=== PATIENT | male | born 1950 | race Hispanic/Latino ===

== ENCOUNTER 2019-10-26 06:09 | Inpatient (IN) | payer BC, MEDICARE ==
[2019-10-26 06:36] LABS: #Eosinphils 0.1 thou/uL (0.0-0.7); #Lymphocytes 2.4 thou/uL (1.20-3.40); #Monocytes 0.9 thou/uL (0.11-0.59); #Neutrophils 4.6 thou/uL (1.40-6.50); %Eosinophils 0.9 % (0.0-10.0); %Lymphocytes 29.8 % (21.0-51.0); %Monocytes 11.1 % (0.0-10.0); %Neutrophils 58.2 % (42.0-75.0); Hemoglobin 13.7 g/dL (14.0-18.0); Mean Corpuscular Hemoglobin 29.7 pg (27.0-31.0); Mean Corpuscular Volume 87.3 fL (78.0-98.0); Mean Platelet Volume 8.6 fL (7.4-10.4); Platelet Count 190 thou/uL (130-400); RBC Distribution Width 12.7 % (11.5-14.5); Red Blood Cell (RBC) Count 4.62 mill/uL (4.70-6.10)
[2019-10-26 06:44] LABS: Bilirubin Negative (Negative); Blood, Urine Negative (Negative); Clarity Clear (Clear); Glucose, Urine (Dipstick) Normal (Negative); Leukocyte Negative Leu/uL (Negative); Nitrite Negative (Negative); Protein, Urine (Dipstick) 20 mg/dL (Neg-Trace); Urobilinogen Normal mg/dL (Less than 2)
[2019-10-26 07:07] LABS: Anion Gap 12 mmol/L (10-20); BUN (Urea Nitrogen) 24 mg/dL (8.4-25.7); Calc. Creatinine Clearance 0 mL/min (70-130); Carbon Dioxide 22 mmol/L (23-31); Chloride 104 mmol/L (98-107); Estimated GFR-MDRD 74; Potassium 4.2 mmol/L (3.5-5.1); Sodium 134 mmol/L (136-145)
[2019-10-26 07:08] LABS: ALT (SGPT) 17 U/L (8-55); AST (SGOT) 16 U/L (5-34); Alkaline Phosphatase 158 U/L (40-110); Bilirubin, Total 0.3 mg/dL (0.2-1.2); Globulin 3.8 g/dL (2.4-3.5); Glucose 194 mg/dL (80-115); Lipase 25 U/L (8-78); Protein, Total 7.8 g/dL (5.8-8.1)
[2019-10-26] MEDS ORDERED: Morphine 4 MG/ML VIAL ONE ×2 (07:38→11:48)
[2019-10-26] MEDS ORDERED: Ondansetron PF 4 MG/2 ML Vial ONE (07:38)
--- NOTE | 2019-10-26 07:55 | CT ---
EXAM: CT ABDOMEN AND PELVIS HISTORY: Abdominal pain, starting Wednesday. Green foul-smelling diarrhea. COMPARISON: 03/14/2010 Procedure: Multiple contiguous axial images were obtained and a CT of the abdomen and pelvis with IV contrast. C oronal reformats were performed. FINDINGS: Lower Chest: Scarring and atelectasis in the lung bases. Vessels: Normal caliber aorta. No periaortic fat stranding Heart: Normal heart size. No significant pericardial fluid Abdomen: Portal vein:Patent Gallbladder: Surgically absent Liver: Hepatic steatosis. No enhancing masses. Pancreas: within normal limits. Spleen: within normal limits. Adrenals: within normal limits. Kidneys: Symmetric enhancement. No obstructive uropathy. Peritoneum: There is a small amount of perihepatic fluid. No mesenteric mass, lymphadenopathy or free air. Bowel: Limited evaluation due to the lack of oral contrast. Multiple fluid-filled prominent small bow el loops are noted. The exact transition segment appears to be in the right hemiabdomen. The distal small bowel loops as well as the ileocecal junction are decompressed. Appendix is not appreciated. No secondary signs of appendicitis scattered fecal material in a nondistended, nondilated colon. Small amount of fluid adjacent to the cecal apex Mesentery and Retroperitoneum: No enlarged mesenteric or retroperitoneal lymph nodes. Abdominal Wall: within normal limits. Pelvis: Reproductive Organs: Mild enlarged prostate gland. Pelvis: No mass, lymphadenopathy, free air. Small amount of free fluid.. Bladder: within normal limits. Bones: within normal limits. IMPRESSION: 1. Prominent small bowel loops suggesting early or partial bowel obstruction. Continued surveillance to ensure resolution
[2019-10-26] MEDS ORDERED: Lidocaine Viscous Sol 2% 15 ml UD Cup ONE (08:12)
[2019-10-26] MEDS ORDERED: Benzocaine 20% Spray 60 ML CAN ONE (08:12)
--- NOTE | 2019-10-26 09:27 | PDOC.FPRHP ---
- History of Present Illness Chief Complaint: Abdominal Pain History of Present Illness: 69 yo M presents to the ED with complaint of abdominal pain and diarrhea. States abdominal pain started 2 days ago but got acutely worse about 24 hrs ago. Notes he has had diarrhea since Wednesday and occurred again this morning. Denies any blood in his stool. has hx of ex lap, appy, and darlene previous. Denies hx of SBO but states that he was admitted for constipation several years ago and was told by Dr. Ospina at that time that if it happens again he may need surgery - which is questionable whether he had a SBO at that time. Denies any fever, chills, N/V. ED Course: CT abdomen showing partial SBO, NG placed, 1L NS, zofran - Allergies/Adverse Reactions Allergies Allergy/AdvReac Type Severity Reaction Status Date / Time Penicillins Allergy Verified 10/26/19 13:24 - Home Medications Medication Instructions Recorded Confirmed Type No Known 10/26/19 10/26/19 History Comments: No home medications - History PMHx: DM? PSHx: Ex lap, cholecystectomy, appendectomy, knee replacement, ankle, shoulder FHx: Non-contributory Social: Occasional alcohol use, denies tobacco or drugs - Review of Systems General: reports: weight/appetite/sleep changes (decreased appetite). denies: fever/chills Eyes: denies: vision changes, other Respiratory: denies: cough, congestion, shortness of breath Cardiovascular: denies: chest pain, palpitation, edema Gastrointestinal: reports: diarrhea, abdominal pain. denies: nausea, vomiting Genitourinary: denies: incontinence, dysuria Skin: denies: rashes, lesions Musculoskeletal: denies: pain, tenderness Neurological: denies: numbness, weakness - Vital signs BP: 114/70, Pulse: 52, Resp: 16, Temp: 97.8 (Oral), Pain: 8, O2 sat: 95 on ( Room Air), Wt: 79kg - Physical Exam Constitutional: NAD, awake, alert and oriented, well developed HEENT: EOMI, MMM -HEENT: NG tube in place draining bilious contents Heart: RRR, normal S1/S2, no murmurs/rubs/gallops Lungs: CTAB, no respiratory distress Abdomen: soft -Abdomen: Distended with tympany to percussion, mild-mod tenderness to epigastrium, no rigidity or peritoneal signs Musculoskeletal: ROM grossly normal Neurological: no focal deficit, CN II-XII intact Skin: no rash/lesions, capillary refill <2 seconds, no jaundice Heme/Lymphatic: no unusual bruising or bleeding, no purpura Psychiatric: normal mood and affect, good judgment and insight, intact recent and remote memory FMR H&P: Results - Labs Result Diagrams: 10/26/19 06:23 10/26/19 06:23 Lab results: WBC 8.0 thou/uL (4.8-10.8) 10/26/19 06:23 Hgb 13.7 g/dL (14.0-18.0) L 10/26/19 06:23 Hct 40.4 % (42.0-52.0) L 10/26/19 06:23 MCV 87.3 fL (78.0-98.0) 10/26/19 06:23 Plt Count 190 thou/uL (130-400) 10/26/19 06:23 Neutrophils % 58.2 % (42.0-75.0) 10/26/19 06:23 Sodium 134 mmol/L (136-145) L 10/26/19 06:23 Potassium 4.2 mmol/L (3.5-5.1) 10/26/19 06:23 Chloride 104 mmol/L (98-107) 10/26/19 06:23 Carbon Dioxide 22 mmol/L (23-31) L 10/26/19 06:23 BUN 24 mg/dL (8.4-25.7) 10/26/19 06:23 Creatinine 1.00 mg/dL (0.7-1.3) 10/26/19 06:23 Glucose 194 mg/dL (80-115) H 10/26/19 06:23 Calcium 9.0 mg/dL (7.8-10.44) 10/26/19 06:23 Total Bilirubin 0.3 mg/dL (0.2-1.2) 10/26/19 06:23 AST 16 U/L (5-34) 10/26/19 06:23 ALT 17 U/L (8-55) 10/26/19 06:23 Alkaline Phosphatase 158 U/L (40-110) H 06/18/20 06:23 Serum Total Protein 7.8 g/dL (5.8-8.1) 10/26/19 06:23 Albumin 4.0 g/dL (3.4-4.8) 10/26/19 06:23 Lipase 25 U/L (8-78) 10/26/19 06:23 Urine Ketones Negative mg/dL (Negative) 10/26/19 06:35 Urine Blood Negative (Negative) 10/26/19 06:35 Urine Nitrite Negative (Negative) 10/26/19 06:35 Ur Leukocyte Esterase Negative Maddie/uL (Negative) 10/26/19 06:35 - Radiology Interpretation CT scan - pelvis Status: report reviewed by me (1. Prominent small bowel loops suggesting early or partial bowel obstruction. Continued surveillance to ensure resolution) FMR H&P: A/P - Problem List (1) Partial small bowel obstruction Current Visit: Yes Status: Acute Code(s): K56.600 - PARTIAL INTESTINAL OBSTRUCTION, UNSPECIFIED TO CAUSE (2) History of exploratory laparotomy Current Visit: Yes Status: Acute Code(s): Z98.890 - OTHER SPECIFIED POSTPROCEDURAL STATES - Plan Partial Small Bowel Obstruction - Abdominal pain, diarrhea, hx of multiple abdominal surgeries - CT w/o contrast read as early vs partial SBO - NG tube placed in ED - Aggressive fluid resuscitation w/ LR @ 200 - Walking program to stimulate bowels - Gen surg consulted from ED, appreciate recs Elevated blood glucose - No previous Dx of DM - A1c ordered VTE: SCD Diet: Regular Code: Full Dispo: Admit to medical inpt. ELOS > 48hr PCP: Dr. Vega, [facility] FMR H&P: Upper Level - Pertinent history 69 year old male with extensive abdominal surgical history presents with diarrhea and abdominal pain since Wednesday. Patient states that he has been having 3-4 bouts of watery diarrhea per day. He states that this morning his BM was a little more formed. He states his abdomen is tender throughout. He denies N/V. He denies having constipation. He states he was having normal BM's prior to Wednesday. He denies any blood in his stool. Patient states that he has history of partial SBO in the past that presented similarly. He denies fever, cough, congestion, shortness of breath. - Pertinent findings General: Alert and oriented x3. NAD. HEENT: MMM. Card: RRR, no murmurs. Resp: CTA bilaterally, no acute respiratory distress. Abdomen: Soft, mildly tender to palpation throughout, no palpable masses, hypoactive, high pitched bowel sounds. NG tube with minimal bilious output Ext: No cyanosis or edema - Plan Date/Time: 10/26/19926 I, Gisela Morris, have evaluated this patient and agree with findings/plan as outlined by purchasing internship resident. Pertinent changes/additions are listed here. Suspect partial small bowel obstruction - NPO; bowel rest - NG tube; now with minimal output - General surgery consulted; appreciate recs - Evaluate for NG tube removal - Encourage ambulation - IVF Diabetes, newly diagnosed - HgA1c 7.7 - Not currently on medications - SSI once diet tolerated - Recommend starting on metformin when tolerating PO DVT ppx: SCD's, ambulation Code Status: Full code Dispo: Admit to medical. Anticipate LOS >48 hours. Addendum - Attending - Attending Attestation Date/Time: 10/26/191812 I personally evaluated the patient and discussed the management with Dr. Araya. I agree with the History, Examination, Assessment and Plan documented above with any addition or exceptions noted below - 69 yo M presents to the ED with complaint of abdominal pain and diarrhea. States abdominal pain started 2 days ago but got acutely worse about 24 hrs ago. Notes he has had diarrhea since Wednesday and occurred again this morning. Denies any blood in his stool. has hx of ex lap, appy, and darlene previous. Denies hx of SBO but states that he was admitted for constipation several years ago. PMH/PSH/Meds/SH reviewed and agree with resident's documentation. Afebrile VSS. Exam repeated by me and agree with resident's findings. Labs: WBC=8.0, H/H= 13.7/40.4, Jgq=644, Ax=568, K=4.2, Cl= 104, CO2=22, BUN/Cr= 24/1.0, Xsua=182, AST/ALT=16/17, CihA2t=2.7, CT abd- prominent loops of bowel proximally primarily on right side; possible early versus partial SBO. A/P: 1) Partial verus early SBO - ADmit to medical; NGT in place and patient feels better. Surgery consulted earlier. 2) Newly diagnosed DM - monitor accuchecks; diabetic education and dietary consult tomorrow.
[2019-10-26] MEDS ORDERED: Ondansetron ODT 4 MG TAB PO PRN (13:02)
[2019-10-26] MEDS ORDERED: Ondansetron PF 4 MG/2 ML Vial IVP PRN (13:02)
[2019-10-26] MEDS ORDERED: Morphine 2 MG/ML SYRINGE SLOW IVP PRN (13:02)
[2019-10-26] MEDS ORDERED: Acetaminophen 325 MG TAB PO PRN (13:02)
[2019-10-26 13:31] LABS: Hemoglobin A1c 7.7 % (4.0-6.0)
[2019-10-26 13:33] VITALS: BMI 28.2
[2019-10-26] MEDS: Lactated Ringer's 1,000 ML IV SCH ×3 (14:22→19:59)
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
[2019-10-26] MEDS ORDERED: Polyethylene Glycol 3350 17 GM Packet PER TUBE SCH (16:30)
[2019-10-26] MEDS: Famotidine/PF 20 mg/2ml Vial SLOW IVP SCH (20:00)
[2019-10-27] MEDS: Lactated Ringer's 1,000 ML IV SCH ×3 (00:13→10:23)
[2019-10-27 06:29] LABS: #Eosinphils 0.1 thou/uL (0.0-0.7); #Lymphocytes 2.1 thou/uL (1.20-3.40); #Monocytes 0.7 thou/uL (0.11-0.59); %Basophils 0.4 % (0.0-1.0); %Eosinophils 1.3 % (0.0-10.0); %Lymphocytes 35.6 % (21.0-51.0); %Monocytes 11.3 % (0.0-10.0); %Neutrophils 51.3 % (42.0-75.0); Hemoglobin 12.6 g/dL (14.0-18.0); Mean Corpuscular HGB CONC 35.6 g/dL (32.0-36.0); Mean Corpuscular Hemoglobin 31.4 pg (27.0-31.0); Mean Corpuscular Volume 88.2 fL (78.0-98.0); Mean Platelet Volume 8.1 fL (7.4-10.4); Platelet Count 164 thou/uL (130-400); RBC Distribution Width 12.6 % (11.5-14.5); Red Blood Cell (RBC) Count 4.01 mill/uL (4.70-6.10); White Blood Cell (WBC) Count 5.9 thou/uL (4.8-10.8)
[2019-10-27 06:47] LABS: Phosphorus 2.7 mg/dL (2.3-4.7)
[2019-10-27 07:17] LABS: ALT (SGPT) 15 U/L (8-55); AST (SGOT) 14 U/L (5-34); Albumin 3.3 g/dL (3.4-4.8); Alkaline Phosphatase 112 U/L (40-110); Anion Gap 9 mmol/L (10-20); BUN (Urea Nitrogen) 10 mg/dL (8.4-25.7); Bilirubin, Total 0.6 mg/dL (0.2-1.2); Calc. Creatinine Clearance 108 mL/min (70-130); Calcium 8.2 mg/dL (7.8-10.44); Carbon Dioxide 26 mmol/L (23-31); Chloride 106 mmol/L (98-107); Estimated GFR-MDRD Greater than 90; Glucose 119 mg/dL (80-115); Magnesium 1.7 mg/dL (1.6-2.6); Potassium 3.9 mmol/L (3.5-5.1); Protein, Total 6.3 g/dL (5.8-8.1); Sodium 137 mmol/L (136-145)
--- NOTE | 2019-10-27 07:37 | PDOC.FM ---
Addendum entered and electronically signed by Zach Araya DO 10/27/19 08:43 : A/P addition DM II - New found diabetes - A1c 7.7 - Initiate metformin 500mg BID once no longer NPO Original Note: - Subjective Subjective: Pt states he feels much better this morning and contributes to NG decompression. States he has been passing a lot of gas but no BM. Has not been able to ambulate much because of NG. Denies fever/chills/. Notes Nausea with movement due to NG. - Objective Vital Signs & Weight: Vital Signs (12 hours) Temp Pulse Resp BP Pulse Ox 10/27/19 04:00 99.1 F 55 L 16 125/65 93 L 10/27/19 00:17 98.7 F 57 L 16 152/81 H 94 L 10/26/19 20:00 92 L Weight Weight 88.195 kg I&O: 10/26/19 10/27/19 10/28/19 06:59 06:59 06:59 Intake Total 2400 Output Total 1110 Balance 1290 Result Diagrams: 10/27/19 06:19 10/27/19 06:19 Phys Exam - Physical Examination Constitutional: NAD HEENT: moist MMs, sclera anicteric Neck: full ROM Respiratory: clear to auscultation bilateral Cardiovascular: RRR Gastrointestinal: soft Slightly distended and still tympanic Denies tenderness other than with deep epigastric palpation Neurological: non-focal, moves all 4 limbs Psychiatric: normal affect, A&O x 3 Dx/Plan (1) Partial small bowel obstruction Code(s): K56.600 - PARTIAL INTESTINAL OBSTRUCTION, UNSPECIFIED TO CAUSE Status: Acute (2) History of exploratory laparotomy Code(s): Z98.890 - OTHER SPECIFIED POSTPROCEDURAL STATES Status: Acute - Plan Plan: Partial Small Bowel Obstruction - NG remains in place - surg to eval for possible removal this morning - Aggressive fluid resuscitation w/ LR @ 200 - Walking program to stimulate bowels - clamp NG as needed to allow for ambulation - Gen surg consulted from ED, appreciate recs - Consider gastrograffin follow through for both motility benefits and diagnostic aid Elevated blood glucose - No previous Dx of DM - A1c ordered VTE: SCD Diet: Regular Code: Full Dispo: Admit to medical inpt for bowel monitoring, gastric decompression, and bowel rehydration. ELOS > 48hr PCP: Dr. Vega, [facility] Addendum - Attending - Attending Attestation Date/Time: 10/27/191900 I personally evaluated the patient and discussed the management with Dr. Araya I agree with the History, Examination, Assessment and Plan documented above with any addition or exceptions noted below - Patient feeling better; passing more gas. Afebrile VSS. A/P: 1) Ileus versus partial SBO- improving; will clamp NGT and see if patient tolerates it and can start diet. .
[2019-10-27] MEDS: Famotidine/PF 20 mg/2ml Vial SLOW IVP SCH ×2 (08:09→19:59)
[2019-10-27] MEDS ORDERED: Magnesium 2 GM/50 ML 2 GM in Premix Bag 1 BAG IVPB SCH (08:15)
[2019-10-27] MEDS: metFORMIN 500 MG TAB PO SCH (18:27)
--- NOTE | 2019-10-27 19:39 | PRG ---
DATE OF SERVICE: 10/27/2019 SUBJECTIVE: The patient was seen this morning during rounds by Dr. Ospina. NG output not impressive and not of concerning characteristic. Abdominal pain has resolved. The patient is ambulating. Reports passing gas. Denies bowel movement. Advanced to clear liquid diet. OBJECTIVE: VITAL SIGNS: Temperature 98.5, pulse 49, respirations 20, oxygen saturation 92% on room air, blood pressure 112/50. GENERAL: Well-appearing elderly male, ambulating in hallway with no signs of acute distress. PULMONARY: Equal chest rise and fall. Clear breath sounds bilaterally. No signs of acute respiratory distress. CARDIAC: Regular rate and rhythm. GI: Abdomen is soft, nontender, nondistended. EXTREMITIES: 2+ pulses in all extremities. Gross motor and sensation are intact. No significant swelling noted. NEUROLOGIC: GCS 15. LABORATORY FINDINGS: White count 5.9, hemoglobin 12.6, hematocrit 35.4, platelets 164. Sodium 137, potassium 3.9, chloride 106, bicarb 26, BUN 10, creatinine 0.82, glucose 119, total bilirubin 0.6, , alkaline phosphatase 112, albumin 3.3. DIAGNOSTIC FINDINGS: There are no new diagnostic findings to report. ASSESSMENT: Possible partial small-bowel obstruction versus gastroenteritis, now resolving. PLAN: Surgery discontinued NG tube. Clear liquid diet. Ambulate as much as possible. Pending bowel movement surgery. We will re-evaluate in the morning and likely advance diet if the patient continues to be asymptomatic. Discontinue IV fluids. This patient was seen and evaluated by Dr. Ospina this morning during rounds. Job ID: [id number]
[2019-10-28] MEDS: Famotidine/PF 20 mg/2ml Vial SLOW IVP SCH (07:40)
[2019-10-28] MEDS: metFORMIN 500 MG TAB PO SCH (07:40)
--- NOTE | 2019-10-28 07:42 | PDOC.FM ---
- Subjective Subjective: Patient doing well. No significant overnight events. Denies n/v/d, has had bowel movement and feels great. Denies constipation. Tolerating clear liquid diet without difficulty. No concerns. - Objective MAR Reviewed: Yes Vital Signs & Weight: Vital Signs (12 hours) Temp Pulse Resp BP BP Pulse Ox 10/28/19 07:10 98.0 F 50 L 16 142/75 H 94 L 10/28/19 04:01 98.9 F 53 L 18 138/64 94 L 10/27/19 20:00 98 Weight Weight 86.364 kg I&O: 10/27/19 10/28/19 10/29/19 06:59 06:59 06:59 Intake Total 2400 2100 Output Total 1110 Balance 1290 2100 Result Diagrams: 10/27/19 06:19 10/27/19 06:19 EKG Reviewed by me: Yes Radiology Reviewed by me: Yes Phys Exam - Physical Examination Constitutional: NAD HEENT: moist MMs Respiratory: no wheezing, clear to auscultation bilateral Cardiovascular: RRR, no significant murmur Gastrointestinal: soft, non-tender, no distention, positive bowel sounds Musculoskeletal: no edema, pulses present Neurological: non-focal, moves all 4 limbs Psychiatric: normal affect, A&O x 3 Skin: no rash, cap refill <2 seconds Dx/Plan (1) Partial small bowel obstruction Code(s): K56.600 - PARTIAL INTESTINAL OBSTRUCTION, UNSPECIFIED TO CAUSE Status: Acute (2) History of exploratory laparotomy Code(s): Z98.890 - OTHER SPECIFIED POSTPROCEDURAL STATES Status: Acute - Plan Plan: Partial Small Bowel Obstruction - NG tube removed yesterday - IVF have been discontinued - Walking program to stimulate bowels - Gen surg consulted from ED, appreciate recs - Tolerated clear liquid diet; will advance diet this AM. If doing well, can consider d/c home Type II DM - No previous Dx of DM - A1c 7.7 - Started on metformin BID - ACHS accuchecks - Will need outpatient management to optimize control VTE: SCD Diet: Regular Code: Full Dispo: If patient tolerated diet today, can d/c home. Addendum - Attending - Attending Attestation Date/Time: 10/28/19 [id number] I personally evaluated the patient and discussed the management with Dr. Alexandra I agree with the History, Examination, Assessment and Plan documented above with any addition or exceptions noted below- Patient feeling much better; Tolerated clears; NGT out. Afebrile VSS. A/P: 1) Partial SBO-resolved; Advance to regular diet. D/c home this afternoon.
[2019-10-28 14:39] VITALS: BP 147/72; TEMP 98.4
--- NOTE | 2019-10-28 16:48 | PRG ---
DATE OF SERVICE: 10/28/2019 SUBJECTIVE: The patient was seen this afternoon during rounds. He was sitting up at the edge of the bed and just had completed his meal. He was advanced to a diabetic diet this morning by family medicine team. He reports tolerating his diet. States his abdominal pain has resolved. He has not had bowel movements. He is ambulating without difficulty. Denies nausea, vomiting, or passing gas. OBJECTIVE: VITAL SIGNS: Temperature 98.5, pulse 74, respirations 18, oxygen saturation 95% on room air, and blood pressure 129/81. GENERAL: A well-appearing elderly male, sitting up at the edge of the bed with no signs of acute distress. PULMONARY: Equal chest rise and fall. Clear breath sounds bilaterally. No signs of acute respiratory distress. CARDIAC: Regular rate and rhythm. GI: Abdomen is soft, nontender, and nondistended. EXTREMITIES: 2+ pulses in all extremities. Gross motor and sensation intact. No significant swelling noted. NEUROLOGIC: GCS 15. ASSESSMENT: Partial small-bowel obstruction versus gastroenteritis. PLAN: Continue regular diet. No surgical indication. Discharge per primary team. Surgery to sign off. Job ID: [id number]
--- NOTE | 2019-10-30 15:02 | DIS ---
DATE OF ADMISSION: 10/26/2019 DATE OF DISCHARGE: 10/28/2019 RESIDENT: Gisela Morris DO. ADMITTING ATTENDING: Christine Jung MD. DISCHARGE ATTENDING: Christine Jung MD. CONSULTATIONS: General surgery, Dr. Ospina. PROCEDURES: 1. Abdominal/pelvis CT, prominent small bowel loops suggesting earlier partial small bowel obstruction. PRIMARY DIAGNOSES: 1. Marked partial small bowel obstruction. 2. Newly diagnosed type 2 diabetes mellitus. DISCHARGE MEDICATIONS: 1. Metformin 500 mg p.o. b.i.d. Discontinued medications: None. HISTORY OF PRESENT ILLNESS/HOSPITAL COURSE: This is a very pleasant 69-year-old male, who presented to the emergency department with abdominal pain and diarrhea that started 2 days prior to admission, but worsened over the last 24 hours. The patient has history significant for exploratory laparotomy, appendectomy, cholecystectomy. CT was performed, which suggested a partial small bowel obstruction. An NG tube was placed in the emergency department and patient did experience almost immediate relief with decompression. He was started on IV fluid for resuscitation. The patient did very well during the course of his hospital stay. The NG tube was removed on the following day. The patient tolerated diet without problems. He also had several bowel movements and was passing gas without any issues. Prior to discharge, the patient was tolerating a regular diet and had no further concerns. Of note, patient did have a blood glucose, which is elevated on admission. Hemoglobin A1c was obtained and noted to be 7.7. This is new diagnosis of diabetes for the patient. He was started on metformin 500 mg p.o. b.i.d. It is advised that he follow up with his primary doctor for continued surveillance of his blood sugars. DISPOSITION: Stable. DISCHARGE INSTRUCTIONS: 1. Location: Home. 2. Diet: Consistent carb. 3. Activity: As tolerated. 4. Follow up with Dr. Vega at [facility] within 7 days of discharge from the hospital. Job ID: [id number]
== END 2019-10-28 14:37 | disposition home or self-care (01) | DRG 392 ==
LOC: ERS 06:09 → ERHOLD 08:52 → T4-A 12:42
PROVIDERS: ADMIT Family Medicine; ATTEND Family Medicine
DX: K52.9 Noninfective gastroenteritis and colitis, unspecified (principal); K56.600 Partial intestinal obstruction, unspecified as to cause; I10 Essential (primary) hypertension; E78.5 Hyperlipidemia, unspecified; Z96.653 Presence of artificial knee joint, bilateral; E11.65 Type 2 diabetes mellitus with hyperglycemia; Z90.49 Acquired absence of other specified parts of digestive tract; Z88.0 Allergy status to penicillin
CPT/HCPCS: 36415; 36416; 74177; 80053; 81003; 83036; 83690; 83735; 84100; 85025; 96361; 96374; 96375; 96376; J2270; J2405; J3475; S0028

== ENCOUNTER 2019-11-22 12:47 | Emergency (ER) | payer MEDICARE, OTHER ==
--- NOTE | 2019-11-22 13:41 | RAD ---
Exam: Single view of the chest and 2 views of the abdomen HISTORY: Small bowel obstruction and mid back pain COMPARISON: None FINDINGS: 2 views of the abdomen and a single view the chest shows a nonspecific, nonobstructive darline l gas pattern. Air is seen to the level of the rectum. No free air or air-fluid levels are seen on upright examination. The cardiomediastinal silhouette is normal in size. There is no evidence of consolidation, mass, or p leural effusion. IMPRESSION: Nonobstructive bowel gas pattern
[2019-11-22 14:24] LABS: #Lymphocytes 2.2 thou/uL (1.20-3.40); #Monocytes 0.6 thou/uL (0.11-0.59); #Neutrophils 5.8 thou/uL (1.40-6.50); %Basophils 0.4 % (0.0-1.0); %Eosinophils 0.1 % (0.0-10.0); %Monocytes 6.5 % (0.0-10.0); %Neutrophils 67.9 % (42.0-75.0); Hemoglobin 13.3 g/dL (14.0-18.0); Mean Corpuscular HGB CONC 33.9 g/dL (32.0-36.0); Mean Corpuscular Hemoglobin 30.1 pg (27.0-31.0); Mean Platelet Volume 8.2 fL (7.4-10.4); Platelet Count 158 thou/uL (130-400); RBC Distribution Width 12.5 % (11.5-14.5); White Blood Cell (WBC) Count 8.6 thou/uL (4.8-10.8)
[2019-11-22 14:40] LABS: ALT (SGPT) 18 U/L (8-55); AST (SGOT) 26 U/L (5-34); Albumin 3.7 g/dL (3.4-4.8); Alkaline Phosphatase 87 U/L (40-110); Anion Gap 12 mmol/L (10-20); BUN (Urea Nitrogen) 21 mg/dL (8.4-25.7); Bilirubin, Total 0.6 mg/dL (0.2-1.2); CK (CPK) 77 U/L (30-200); Calc. Creatinine Clearance 0 mL/min (70-130); Calcium 8.7 mg/dL (7.8-10.44); Carbon Dioxide 23 mmol/L (23-31); Chloride 103 mmol/L (98-107); Estimated GFR-MDRD 53; Globulin 4.1 g/dL (2.4-3.5); Glucose 211 mg/dL (80-115); Lipase 39 U/L (8-78); Potassium 4.2 mmol/L (3.5-5.1); Protein, Total 7.8 g/dL (5.8-8.1); Sodium 134 mmol/L (136-145)
[2019-11-22] MEDS ORDERED: Acetaminophen 500 MG TAB ONE (15:14)
[2019-11-22 15:43] LABS: Bilirubin Negative (Negative); Blood, Urine Trace (Negative); Clarity Clear (Clear); Glucose, Urine (Dipstick) Normal (Negative); Ketone, Urine Negative (Negative); Leukocyte Negative Leu/uL (Negative); Nitrite Negative (Negative); Protein, Urine (Dipstick) 600 mg/dL (Neg-Trace)
[2019-11-22 15:49] LABS: RBC/HPF 0-3 HPF (0-3)
[2019-11-22 15:51] LABS: Bacteria/HPF Rare-Few HPF (None Seen); Mucous/LPF 1+ LPF (<2+); Squamous Epithelial None Seen HPF (0-3); Transitional Epithelial 0-3 HPF (None Seen); WBC/HPF 0-3 HPF (0-3)
== END 2019-11-22 18:00 | disposition home or self-care (01) ==
LOC: ERS 12:47
DX: E86.0 Dehydration (principal); M54.5 Low back pain; M54.6 Pain in thoracic spine; R10.9 Unspecified abdominal pain; R80.9 Proteinuria, unspecified; E11.9 Type 2 diabetes mellitus without complications; I10 Essential (primary) hypertension
CPT/HCPCS: 36415; 74022; 80053; 81003; 81015; 82550; 83690; 85025; 96360

== ENCOUNTER 2021-03-30 19:51 | Emergency (ER) | payer BC, MEDICARE ==
[2021-03-30 20:21] LABS: #Basophils 0.1 thou/uL (0.0-0.2); #Eosinphils 0.1 thou/uL (0.0-0.7); #Lymphocytes 0.5 thou/uL (1.20-3.40); #Monocytes 0.6 thou/uL (0.11-0.59); #Neutrophils 7.9 thou/uL (1.40-6.50); %Basophils 0.7 % (0.0-1.0); %Eosinophils 1.1 % (0.0-10.0); %Lymphocytes 5.9 % (21.0-51.0); %Monocytes 6.2 % (0.0-10.0); %Neutrophils 86.1 % (42.0-75.0); Hemoglobin 14.9 g/dL (14.0-18.0); Mean Corpuscular HGB CONC 35.1 g/dL (32.0-36.0); Mean Corpuscular Hemoglobin 31.8 pg (27.0-31.0); Mean Corpuscular Volume 90.6 fL (78.0-98.0); Mean Platelet Volume 7.7 fL (7.4-10.4); Platelet Count 188 thou/uL (130-400); RBC Distribution Width 12.4 % (11.5-14.5); White Blood Cell (WBC) Count 9.2 thou/uL (4.8-10.8)
[2021-03-30 20:36] LABS: ALT (SGPT) 23 U/L (8-55); AST (SGOT) 17 U/L (5-34); Albumin 3.9 g/dL (3.4-4.8); Alkaline Phosphatase 147 U/L (40-110); Anion Gap 14 mmol/L (10-20); BUN (Urea Nitrogen) 30 mg/dL (8.4-25.7); Bilirubin, Total 0.8 mg/dL (0.2-1.2); Calc. Creatinine Clearance 0 mL/min (70-130); Calcium 9.2 mg/dL (7.8-10.44); Carbon Dioxide 17 mmol/L (23-31); Chloride 106 mmol/L (98-107); Glucose 230 mg/dL (80-115); Lipase 107 U/L (8-78); Potassium 4.4 mmol/L (3.5-5.1); Protein, Total 7.9 g/dL (5.8-8.1); Sodium 133 mmol/L (136-145)
[2021-03-30 21:45] LABS: Bilirubin Negative (Negative); Blood, Urine Negative (Negative); Clarity Clear (Clear); Glucose, Urine (Dipstick) 300 mg/dL (Negative); Ketone, Urine Negative (Negative); Leukocyte Negative Leu/uL (Negative); Nitrite Negative (Negative); Protein, Urine (Dipstick) Negative (Neg-Trace); Specific Gravity, Urine 1.047 (1.002-1.036); Urobilinogen Normal mg/dL (Less than 2)
== END 2021-03-30 22:45 | disposition home or self-care (01) ==
LOC: ERS 19:51
DX: R10.30 Lower abdominal pain, unspecified (principal); E11.9 Type 2 diabetes mellitus without complications; I10 Essential (primary) hypertension
CPT/HCPCS: 36415; 74177; 80053; 81003; 83690; 85025; 93005; 96372; J0500

== ENCOUNTER 2021-04-13 18:52 | Inpatient (IN) | payer BC, MEDICARE ==
[~2021-04-13 18:52] MED LIST: Iopamidol-370 76% 500 ML 1 ML ONE
[2021-04-13 19:13] LABS: #Eosinphils 0.1 thou/uL (0.0-0.7); #Lymphocytes 2.2 thou/uL (1.20-3.40); #Monocytes 0.8 thou/uL (0.11-0.59); #Neutrophils 8.9 thou/uL (1.40-6.50); %Basophils 0.2 % (0.0-1.0); %Eosinophils 0.7 % (0.0-10.0); %Lymphocytes 18.3 % (21.0-51.0); %Monocytes 6.3 % (0.0-10.0); %Neutrophils 74.5 % (42.0-75.0); Hemoglobin 15.7 g/dL (14.0-18.0); Mean Corpuscular HGB CONC 35.5 g/dL (32.0-36.0); Mean Corpuscular Hemoglobin 32.1 pg (27.0-31.0); Mean Corpuscular Volume 90.4 fL (78.0-98.0); Mean Platelet Volume 7.6 fL (7.4-10.4); Platelet Count 230 thou/uL (130-400); RBC Distribution Width 12.3 % (11.5-14.5); Red Blood Cell (RBC) Count 4.88 mill/uL (4.70-6.10)
[2021-04-13 19:34] LABS: ALT (SGPT) 20 U/L (8-55); AST (SGOT) 19 U/L (5-34); Albumin 4.3 g/dL (3.4-4.8); Alkaline Phosphatase 123 U/L (40-110); Anion Gap 18 mmol/L (10-20); BUN (Urea Nitrogen) 52 mg/dL (8.4-25.7); Bilirubin, Total 0.7 mg/dL (0.2-1.2); Calc. Creatinine Clearance 0 mL/min (70-130); Calcium 9.8 mg/dL (7.8-10.44); Carbon Dioxide 17 mmol/L (23-31); Chloride 102 mmol/L (98-107); Globulin 4.6 g/dL (2.4-3.5); Glucose 192 mg/dL (80-115); Potassium 4.2 mmol/L (3.5-5.1); Protein, Total 8.9 g/dL (5.8-8.1); Sodium 133 mmol/L (136-145)
[2021-04-13] MEDS ORDERED: Ondansetron PF 4 MG/2 ML Vial ONE (20:15)
[2021-04-13] MEDS ORDERED: Morphine 4 MG/ML VIAL ONE (20:15)
[2021-04-13 22:04] LABS: Bacteria/HPF None Seen HPF (None Seen); Bilirubin Negative (Negative); Blood, Urine 1+ (Negative); Clarity Clear (Clear); Glucose, Urine (Dipstick) Normal (Negative); Ketone, Urine 10 mg/dL (Negative); Leukocyte Negative Leu/uL (Negative); Nitrite Negative (Negative); Protein, Urine (Dipstick) 50 mg/dL (Neg-Trace); RBC/HPF 0-3 HPF (0-3); Squamous Epithelial None Seen HPF (0-3); Urobilinogen Normal mg/dL (Less than 2); WBC/HPF 0-3 HPF (0-3); pH, Urine 5.5 (5.0-9.0)
[2021-04-13 22:13] LABS: Specific Gravity, Urine Greater than 1.036 (1.002-1.036)
[2021-04-13 22:52] LABS: SARS-CoV-2 NAA Rapid Test Not Detected (NotDetected)
[2021-04-13] MEDS ORDERED: Lactated Ringer's 1,000 ML IV SCH (23:45)
[2021-04-13] MEDS ORDERED: Ondansetron PF 4 MG/2 ML Vial IVP PRN (23:45)
[2021-04-13 23:46] VITALS: BMI 27.7
[2021-04-14] MEDS: Morphine 4 MG/ML VIAL SLOW IVP PRN ×2 (00:09→05:45)
[2021-04-14] MEDS ORDERED: Ondansetron ODT 4 MG TAB PO PRN (07:28)
[2021-04-14] MEDS ORDERED: Lorazepam 2 MG/ML VIAL SLOW IVP PRN (07:28)
[2021-04-14] MEDS ORDERED: Morphine 4 MG/ML VIAL SLOW IVP PRN ×2 (07:28→07:56)
[2021-04-14] MEDS ORDERED: Sodium Chloride 0.9% 500 ML IV SCH (07:45)
[2021-04-14 08:42] LABS: Anion Gap 12 mmol/L (10-20); BUN (Urea Nitrogen) 40 mg/dL (8.4-25.7); Calc. Creatinine Clearance 55 mL/min (70-130); Calcium 8.6 mg/dL (7.8-10.44); Carbon Dioxide 19 mmol/L (23-31); Chloride 107 mmol/L (98-107); Glucose 152 mg/dL (80-115); Potassium 4.1 mmol/L (3.5-5.1); Sodium 134 mmol/L (136-145)
[2021-04-14] MEDS: Sodium Chloride 0.9% 1,000 ML IV SCH ×2 (08:49→18:08)
[2021-04-14] MEDS: Famotidine/PF 20 mg/2ml Vial SLOW IVP SCH (08:52)
[2021-04-14] MEDS ORDERED: FLU VACC QS2021-22(65YR UP)/PF 240 MCG/0.7 ML SYRINGE IM ONE (09:00)
[2021-04-14] MEDS ORDERED: HumaLOG 300 UNITS/3 ML VIAL SC PRN (09:56)
[2021-04-14] MEDS ORDERED: Dextrose 50% Abboject 50 ML SYRINGE SLOW IVP PRN (09:56)
[2021-04-14] MEDS ORDERED: Dextrose 5% in Water 1,000 ML IV PRN (09:56)
[2021-04-14] MEDS ORDERED: MD-Gastroview 120 ML BOT ONE (13:32)
[2021-04-14] MEDS ORDERED: Glycopyrrolate 0.2 MG/ML 5 ML SYRINGE ONE (16:30)
[2021-04-14] MEDS ORDERED: PROPOFOL 200 MG/20 ML VIAL ONE (16:30)
[2021-04-14] MEDS ORDERED: Lidocaine 1% PF 5 ML VIAL ONE (16:30)
[2021-04-14] MEDS ORDERED: ePHEDrine 50 MG/ML VIAL ONE (16:30)
[2021-04-14] MEDS ORDERED: Succinylcholine 200 MG/10 ml SYRINGE FS ONE (16:30)
[2021-04-14] MEDS ORDERED: Rocuronium Bromide 10 MG/ML (10ML VIAL) ONE (16:30)
[2021-04-14] MEDS ORDERED: Ondansetron PF 4 MG/2 ML Vial ONE (16:30)
[2021-04-14] MEDS ORDERED: Dexamethasone 20 MG/5 ML VIAL ONE (16:30)
[2021-04-14] MEDS ORDERED: cefOXitin Sodium/Dextrose 2 GM/50 ML BAG ONE (17:21)
[2021-04-14] MEDS ORDERED: Morphine 4 MG/ML VIAL ONE (17:22)
[2021-04-14] MEDS ORDERED: Fentanyl 250 MCG/5 ML VIAL ONE (17:52)
[2021-04-14] MEDS ORDERED: Ondansetron HCl/PF 4 MG/2 ML Vial IVP PRN (20:26)
[2021-04-14] MEDS ORDERED: Promethazine HCl 25 MG/ML VIAL IM PRN (20:26)
[2021-04-14] MEDS ORDERED: Promethazine HCl 25 MG/ML VIAL IVPB PRN (20:26)
[2021-04-14] MEDS ORDERED: Enoxaparin Sodium 30 MG/0.3 ML SYRINGE SC SCH (21:00)
[2021-04-14] MEDS ORDERED: diphenhydrAMINE 25 MG CAP PO PRN (21:45)
[2021-04-14] MEDS ORDERED: diphenhydrAMINE 50 MG/ML VIAL IM/IV PRN (21:45)
[2021-04-14] MEDS ORDERED: Zolpidem Tartrate 5 MG TAB PO PRN (21:45)
[2021-04-14] MEDS ORDERED: Naloxone HCl 0.4 mg/ml Vial IV PRN (21:45)
[2021-04-14] MEDS: hydrALAZINE 20 MG/ML VIAL SLOW IVP PRN (22:49)
[2021-04-15 05:48] LABS: Hemoglobin A1c 7.9 % (4.0-6.0)
[2021-04-15 05:56] LABS: #Lymphocytes 0.8 thou/uL (1.20-3.40); #Monocytes 0.5 thou/uL (0.11-0.59); #Neutrophils 2.8 thou/uL (1.40-6.50); %Eosinophils 0.1 % (0.0-10.0); %Lymphocytes 18.3 % (21.0-51.0); %Monocytes 12.3 % (0.0-10.0); %Neutrophils 69.3 % (42.0-75.0); Hemoglobin 13.4 g/dL (14.0-18.0); Mean Corpuscular Hemoglobin 31.3 pg (27.0-31.0); Mean Corpuscular Volume 92.1 fL (78.0-98.0); Mean Platelet Volume 7.8 fL (7.4-10.4); Platelet Count 223 thou/uL (130-400); RBC Distribution Width 12.3 % (11.5-14.5); Red Blood Cell (RBC) Count 4.28 mill/uL (4.70-6.10); White Blood Cell (WBC) Count 4.1 thou/uL (4.8-10.8)
[2021-04-15] MEDS: Sodium Chloride 0.9% 1,000 ML IV SCH ×4 (06:27→21:08)
[2021-04-15 06:41] LABS: ALT (SGPT) 35 U/L (8-55); AST (SGOT) 28 U/L (5-34); Albumin 3.1 g/dL (3.4-4.8); Alkaline Phosphatase 108 U/L (40-110); Anion Gap 13 mmol/L (10-20); BUN (Urea Nitrogen) 23 mg/dL (8.4-25.7); Bilirubin, Total 0.6 mg/dL (0.2-1.2); Calc. Creatinine Clearance 72 mL/min (70-130); Calcium 8.4 mg/dL (7.8-10.44); Carbon Dioxide 17 mmol/L (23-31); Chloride 110 mmol/L (98-107); Globulin 3.5 g/dL (2.4-3.5); Glucose 178 mg/dL (80-115); Potassium 4.3 mmol/L (3.5-5.1); Protein, Total 6.6 g/dL (5.8-8.1); Sodium 136 mmol/L (136-145)
[2021-04-15] MEDS: Famotidine/PF 20 mg/2ml Vial SLOW IVP SCH (08:34)
[2021-04-15] MEDS: Enoxaparin Sodium 40 MG/0.4 ML SYRINGE SC SCH (21:09)
[2021-04-15] MEDS: Fentanyl CADD 100 ML IVPB SCH (21:15)
[2021-04-16] MEDS: Sodium Chloride 0.9% 1,000 ML IV SCH ×3 (00:57→13:53)
[2021-04-16] MEDS: Ondansetron PF 4 MG/2 ML Vial IVP PRN (03:16)
[2021-04-16] MEDS: Promethazine HCl 25 MG/ML VIAL IM PRN (05:50)
[2021-04-16] MEDS: Famotidine/PF 20 mg/2ml Vial SLOW IVP SCH (08:48)
[2021-04-16] MEDS ORDERED: Sodium Chloride 0.9% 1,000 ML IV SCH (16:37)
[2021-04-16] MEDS: Fentanyl CADD 100 ML IVPB SCH (18:13)
[2021-04-16] MEDS: Enoxaparin Sodium 40 MG/0.4 ML SYRINGE SC SCH (21:24)
[2021-04-17 05:56] LABS: Anion Gap 11 mmol/L (10-20); BUN (Urea Nitrogen) 9 mg/dL (8.4-25.7); Calc. Creatinine Clearance 96 mL/min (70-130); Calcium 8.3 mg/dL (7.8-10.44); Carbon Dioxide 22 mmol/L (23-31); Chloride 105 mmol/L (98-107); Glucose 124 mg/dL (80-115); Potassium 3.4 mmol/L (3.5-5.1); Sodium 135 mmol/L (136-145)
[2021-04-17] MEDS ORDERED: Potassium Chloride 20 MEQ TAB PO SCH (08:30)
[2021-04-17] MEDS ORDERED: Lisinopril 5 MG TAB PO SCH (09:30)
[2021-04-17] MEDS: Famotidine/PF 20 mg/2ml Vial SLOW IVP SCH (09:45)
[2021-04-17] MEDS: Ondansetron PF 4 MG/2 ML Vial IVP PRN ×2 (12:29→22:36)
[2021-04-17] MEDS ORDERED: Ketorolac Tromethamine 30 MG/ML VIAL IVP PRN (13:07)
[2021-04-17] MEDS ORDERED: traMADol HCl 50 MG TAB PO PRN (13:07)
[2021-04-17] MEDS ORDERED: Ibuprofen 600 MG TAB PO PRN (13:07)
[2021-04-17] MEDS: Sodium Chloride 0.9% 1,000 ML IV SCH (14:57)
[2021-04-17] MEDS: Promethazine HCl 25 MG/ML VIAL IM PRN (16:45)
[2021-04-17] MEDS: Acetaminophen 500 MG TAB PO SCH ×2 (16:53→20:38)
[2021-04-17] MEDS: Enoxaparin Sodium 40 MG/0.4 ML SYRINGE SC SCH (20:38)
[2021-04-18] MEDS: Sodium Chloride 0.9% 1,000 ML IV SCH ×4 (05:01→20:23)
[2021-04-18] MEDS: hydrALAZINE 20 MG/ML VIAL SLOW IVP PRN (05:05)
[2021-04-18] MEDS: Ondansetron PF 4 MG/2 ML Vial IVP PRN (08:07)
[2021-04-18] MEDS: Acetaminophen 500 MG TAB PO SCH ×4 (08:10→20:24)
[2021-04-18] MEDS: Lisinopril 5 MG TAB PO SCH (08:14)
[2021-04-18] MEDS ORDERED: Lisinopril 5 MG TAB PO SCH (09:00)
[2021-04-18] MEDS: Enoxaparin Sodium 40 MG/0.4 ML SYRINGE SC SCH (20:25)
[2021-04-19 05:47] LABS: #Eosinphils 0.3 thou/uL (0.0-0.7); #Lymphocytes 1.8 thou/uL (1.20-3.40); #Monocytes 0.7 thou/uL (0.11-0.59); %Basophils 0.2 % (0.0-1.0); %Eosinophils 2.7 % (0.0-10.0); %Lymphocytes 18.6 % (21.0-51.0); %Monocytes 7.2 % (0.0-10.0); %Neutrophils 71.2 % (42.0-75.0); Hemoglobin 10.9 g/dL (14.0-18.0); Mean Corpuscular HGB CONC 34.8 g/dL (32.0-36.0); Mean Corpuscular Hemoglobin 31.9 pg (27.0-31.0); Mean Corpuscular Volume 91.7 fL (78.0-98.0); Mean Platelet Volume 7.5 fL (7.4-10.4); Platelet Count 211 thou/uL (130-400); RBC Distribution Width 12.1 % (11.5-14.5); Red Blood Cell (RBC) Count 3.43 mill/uL (4.70-6.10); White Blood Cell (WBC) Count 9.8 thou/uL (4.8-10.8)
[2021-04-19 06:01] LABS: Anion Gap 15 mmol/L (10-20); BUN (Urea Nitrogen) 9 mg/dL (8.4-25.7); Calc. Creatinine Clearance 110 mL/min (70-130); Calcium 7.9 mg/dL (7.8-10.44); Carbon Dioxide 16 mmol/L (23-31); Chloride 104 mmol/L (98-107); Glucose 98 mg/dL (80-115); Potassium 3.6 mmol/L (3.5-5.1); Sodium 131 mmol/L (136-145)
[2021-04-19] MEDS: Lisinopril 5 MG TAB PO SCH (08:49)
[2021-04-19] MEDS: Acetaminophen 500 MG TAB PO SCH ×5 (08:49→21:23)
[2021-04-19] MEDS: Enoxaparin Sodium 40 MG/0.4 ML SYRINGE SC SCH (21:24)
[2021-04-20] MEDS: Sodium Chloride 0.9% 1,000 ML IV SCH (01:15)
[2021-04-20 08:09] VITALS: BP 153/81; TEMP 97.5
[2021-04-20] MEDS: Acetaminophen 500 MG TAB PO SCH (08:19)
[2021-04-20] MEDS ORDERED: Lisinopril 20 MG TAB PO SCH (09:00)
== END 2021-04-20 09:30 | disposition home or self-care (01) | DRG 336 ==
LOC: ERS 18:52 → SURG A 21:35
PROVIDERS: ADMIT Specialist; ATTEND Specialist
PROC: 0DNB0ZZ Release Ileum, Open Approach (ICD-10-PCS; principal; 2021-04-14)
DX: K56.50 Intestinal adhesions [bands], unspecified as to partial versus complete obstruction (principal); N17.9 Acute kidney failure, unspecified; E87.1 Hypo-osmolality and hyponatremia; E11.9 Type 2 diabetes mellitus without complications; I10 Essential (primary) hypertension; Z96.653 Presence of artificial knee joint, bilateral; E86.0 Dehydration; K56.7 Ileus, unspecified; Z20.822 Contact with and (suspected) exposure to COVID-19; Z90.49 Acquired absence of other specified parts of digestive tract
CPT/HCPCS: 36415; 36416; 74022; 74177; 74250; 80048; 80053; 81003; 81015; 83036; 83690; 84484; 85025; 90471; 90662; 90732; 93005; 96374; 96375; C1713; C1776; G0008; G0009; J0360; J0694; J1100; J1650; J1815; J1885; J2270; J2405; J2550; J2704; J3010; J3490; J7030; J7050; J7120; Q0162; Q9963; Q9967; S0028; U0002

== ENCOUNTER 2025-04-10 23:15 | Inpatient (IN) | payer MEDICARE ==
[~2025-04-10 23:15] MED LIST changes: +Iopamidol 370 76% 100 ML VIAL ONE; -Iopamidol-370 76% 500 ML 1 ML ONE
[2025-04-11 00:04] LABS: #Basophils 0.05 10x3/uL (0.0-0.2); #Eosinophils 0.37 10x3/uL (0.0-0.7); #Monocytes 0.96 10x3/uL (0.11-0.59); #Neutrophils 7.53 10x3/uL (1.40-6.50); %Basophils 0.4 % (0.0-1.0); %Eosinophils 3.1 % (0.0-10.0); %Lymphocytes 24.4 % (21.0-51.0); %Monocytes 8.1 % (0.0-10.0); %Neutrophils 63.7 % (42.0-75.0); Hematocrit 42.1 % (42.0-52.0); Hemoglobin 14.5 g/dL (14.0-18.0); Mean Corpuscular Hemoglobin 29.8 pg (27.0-31.0); Mean Corpuscular Volume 86.6 fL (78.0-98.0); Platelet Count 181 10x3/uL (130-400); Red Blood Cell (RBC) Count 4.86 mill/uL (4.70-6.10); White Blood Cell (WBC) Count 11.82 10x3/uL (4.8-10.8)
[2025-04-11] MEDS ORDERED: Ondansetron PF 4 MG/2 ML Vial ONE (00:08)
[2025-04-11 00:21] LABS: ALT (SGPT) 24 U/L (Less than 45); AST (SGOT) 28 U/L (11-34); Albumin 4.2 g/dL (3.1-4.5); Alkaline Phosphatase 159 U/L (40-110); Anion Gap 16 mmol/L (10-20); BUN (Urea Nitrogen) 26 mg/dL (8.4-25.7); Bilirubin, Total 0.3 mg/dL (0.3-1.2); Calc. Creatinine Clearance 0 mL/min (70-130); Calcium 9.8 mg/dL (7.8-10.44); Carbon Dioxide 21 mmol/L (23-31); Chloride 105 mmol/L (98-107); Globulin 4.4 g/dL (2.4-3.5); Glucose 187 mg/dL (83-110); Lipase 31 U/L (8-78); Potassium 5.9 mmol/L (3.5-5.1); Sodium 136 mmol/L (136-145)
[2025-04-11] MEDS ORDERED: CALCIUM GLUC 1 GM/NS 50 ML IV Bag ONE (02:03)
[2025-04-11] MEDS ORDERED: Dextrose 50% Abboject 50 ML SYRINGE SLOW IVP PRN (05:05)
[2025-04-11] MEDS ORDERED: Glucagon 1 MG/ML KIT IM PRN (05:05)
[2025-04-11] MEDS ORDERED: Ondansetron PF 4 MG/2 ML Vial IVP PRN (05:05)
[2025-04-11] MEDS ORDERED: hydrALAZINE 20 MG/ML VIAL SLOW IVP PRN (05:48)
[2025-04-11] MEDS ORDERED: MD-Gastroview 120 ML BOT ONE (07:53)
[2025-04-11 08:19] VITALS: BMI 26.6
[2025-04-11] MEDS: Pantoprazole 40 MG VIAL IVP SCH (08:38)
[2025-04-11] MEDS: Enoxaparin 40 MG (0.4 mL) SYRINGE SC SCH (08:38)
[2025-04-11 09:32] LABS: Anion Gap 11 mmol/L (10-20); BUN (Urea Nitrogen) 22 mg/dL (8.4-25.7); Calc. Creatinine Clearance 71 mL/min (70-130); Calcium 8.6 mg/dL (7.8-10.44); Carbon Dioxide 20 mmol/L (23-31); Chloride 110 mmol/L (98-107); Glucose 172 mg/dL (83-110); Potassium 4.6 mmol/L (3.5-5.1); Sodium 136 mmol/L (136-145)
[2025-04-11] MEDS: PNEUMOC 20-VAL CONJ-DIP CRM/PF 0.5 ML SYRINGE IM ONE (14:39)
[2025-04-11 16:25] LABS: ALT (SGPT) 87 U/L (Less than 45); AST (SGOT) 86 U/L (11-34); Albumin 3.7 g/dL (3.1-4.5); Alkaline Phosphatase 152 U/L (40-110); Anion Gap 14 mmol/L (10-20); BUN (Urea Nitrogen) 20 mg/dL (8.4-25.7); Bilirubin, Total 0.4 mg/dL (0.3-1.2); Calc. Creatinine Clearance 67 mL/min (70-130); Calcium 9.0 mg/dL (7.8-10.44); Carbon Dioxide 21 mmol/L (23-31); Chloride 112 mmol/L (98-107); Globulin 3.8 g/dL (2.4-3.5); Glucose 155 mg/dL (83-110); Magnesium 2.2 mg/dL (1.6-2.6); Potassium 4.7 mmol/L (3.5-5.1); Sodium 142 mmol/L (136-145)
[2025-04-11] MEDS: diphenhydrAMINE 50 MG/ML VIAL IVP SCH (21:27)
[2025-04-12 04:54] LABS: #Basophils Less than 0.03 10x3/uL (0.0-0.2); #Eosinophils 0.20 10x3/uL (0.0-0.7); #Monocytes 0.78 10x3/uL (0.11-0.59); #Neutrophils 5.57 10x3/uL (1.40-6.50); %Basophils 0.2 % (0.0-1.0); %Eosinophils 2.3 % (0.0-10.0); %Lymphocytes 23.0 % (21.0-51.0); %Monocytes 9.1 % (0.0-10.0); %Neutrophils 65.2 % (42.0-75.0); Hematocrit 37.9 % (42.0-52.0); Hemoglobin 12.1 g/dL (14.0-18.0); Mean Corpuscular Hemoglobin 29.2 pg (27.0-31.0); Mean Corpuscular Volume 91.3 fL (78.0-98.0); Platelet Count 163 10x3/uL (130-400); Red Blood Cell (RBC) Count 4.15 mill/uL (4.70-6.10); White Blood Cell (WBC) Count 8.56 10x3/uL (4.8-10.8)
[2025-04-12 05:37] LABS: ALT (SGPT) 73 U/L (Less than 45); AST (SGOT) 57 U/L (11-34); Albumin 3.5 g/dL (3.1-4.5); Alkaline Phosphatase 135 U/L (40-110); Anion Gap 12 mmol/L (10-20); BUN (Urea Nitrogen) 20 mg/dL (8.4-25.7); Bilirubin, Total 0.4 mg/dL (0.3-1.2); Calc. Creatinine Clearance 67 mL/min (70-130); Calcium 8.9 mg/dL (7.8-10.44); Carbon Dioxide 21 mmol/L (23-31); Chloride 111 mmol/L (98-107); Globulin 3.7 g/dL (2.4-3.5); Glucose 156 mg/dL (83-110); Potassium 4.7 mmol/L (3.5-5.1); Sodium 139 mmol/L (136-145)
[2025-04-12] MEDS: Losartan 25 MG TAB PO SCH (08:40)
[2025-04-12] MEDS: Aspirin 81 mg Enteric Coated Tablet PO SCH (08:40)
[2025-04-12 16:48] VITALS: BP 163/71; TEMP 98.1
[2025-04-12] MEDS ORDERED: metFORMIN 500 MG TAB PO SCH (17:00)
== END 2025-04-12 17:45 | disposition home or self-care (01) | DRG 389 ==
LOC: ERS 23:15 → 2NO 04-11 05:10
PROVIDERS: ADMIT Family Medicine; ATTEND Family Medicine
DX: K56.600 Partial intestinal obstruction, unspecified as to cause (principal); E87.20 Acidosis, unspecified; E11.9 Type 2 diabetes mellitus without complications; I10 Essential (primary) hypertension; Z98.890 Other specified postprocedural states; Z88.0 Allergy status to penicillin; Z79.899 Other long term (current) drug therapy; E87.5 Hyperkalemia
CPT/HCPCS: 36415; 36416; 74018; 74177; 74250; 80048; 80053; 83605; 83690; 83735; 84484; 85025; 93005; 93010; 96361; 96365; 96366; 96375; 96376; J0613; J1200; J1650; J2250; J2270; J2405; J2470; J7120; Q9963; Q9967